=== PATIENT | male | born 1970 | race Caucasian/White ===

== ENCOUNTER 2021-10-09 16:57 | Observation (INO) ==
[2021-10-09 19:19] LABS: Hemoglobin 14.7 g/dL (12.9-16.9); Immature Granulocytes % 0.4 % (0-4); Lymphocytes % 20.2 %; Mean Corpuscular HGB Conc 34.2 g/dL (31.6-35.5); Mean Corpuscular Hemoglobin 30.4 pg (28.0-33.3); Mean Corpuscular Volume 88.8 fL (83.0-100.0); Mean Platelet Volume 8.6 fL (9.4-12.4); Monocytes % 6.1 %; Platelet Count 196 K/mcL (140-400); Red Blood Count 4.84 M/mcL (4.19-5.50); Segmented Neutrophils % 71.1 %; White Blood Count 13.4 K/mcL (4.3-11.1)
[2021-10-09 19:20] LABS: Basophils # 0.1 K/mcL (0.0-0.2); Basophils % 0.6 %; Eosinophils # 0.2 K/mcL (0.0-0.6); Eosinophils % 1.6 %; Lymphocytes # 2.7 K/mcL (0.6-4.6); Monocytes # 0.8 K/mcL (0.0-1.3); Neutrophils # 9.5 K/mcL (1.6-8.9)
[2021-10-09] MEDS ORDERED: *HR* FentaNYL (PF) 100 MCG/2 ML VIAL IVP ONE (19:24)
[2021-10-09] MEDS ORDERED: 0.9 % Sodium Chloride 1,000 ML IV ONE (19:24)
[2021-10-09 19:39] LABS: Potassium 3.9 mEq/L (3.5-5.1)
[2021-10-09 19:49] LABS: Albumin 4.4 g/dL (3.5-5.7); Albumin/Globulin Ratio 1.3 (1.1-2.2); Bilirubin,Direct 0.2 mg/dL (0.0-0.2); Bilirubin,Indirect 0.9 mg/dL (0.0-1.0); Bilirubin,Total 1.1 mg/dL (0.3-1.0); Globulin 3.3 g/dL (2.4-3.5); Total Protein 7.7 g/dL (6.4-8.9)
[2021-10-09 20:40] LABS: Bilirubin,Urine Negative (Negative); Blood,Urine Negative (Negative); Clarity,Urine Clear (Clear); Color,Urine Yellow (Yellow); Glucose,Urine (UA) Normal (Normal); Ketones,Urine Negative (Negative); Leukocyte Esterase,Urine Negative (Negative); Nitrite,Urine Negative (Negative); Protein,Urine Trace mg/dL (Neg-Trace); Specific Gravity,Urine 1.022 (1.010-1.025); Urobilinogen,Urine Normal (Normal)
[2021-10-09] MEDS ORDERED: *HR* HYDROmorphone 2 MG TABLET PO ONE (22:27)
[2021-10-09] MEDS ORDERED: *HR* HYDROmorphone (PF) 1 MG/ML SYRINGE IVP ONE (23:31)
[2021-10-10] MEDS ORDERED: *HR* HYDROcodone/Acet 5/325 mg TABLET PO PRN ×2 (00:32→09:54)
[2021-10-10] MEDS ORDERED: Melatonin 3 MG TABLET PO PRN ×2 (00:32→09:54)
[2021-10-10] MEDS ORDERED: Ondansetron 4 MG/2 ML VIAL IVP PRN (00:32)
[2021-10-10] MEDS ORDERED: Naloxone 0.4 MG/ML INJ IVP PRN ×2 (00:32→09:54)
[2021-10-10] MEDS ORDERED: Acetaminophen 325 MG TABLET PO PRN ×2 (00:32→09:54)
[2021-10-10] MEDS ORDERED: polyethylene glycoL 3350 17 GM POWD.PACK PO PRN (00:34)
[2021-10-10 03:07] LABS: Hematocrit 39.1 % (37.5-50.1); Mean Corpuscular Hemoglobin 29.7 pg (28.0-33.3); Mean Corpuscular Volume 90.1 fL (83.0-100.0); Mean Platelet Volume 8.6 fL (9.4-12.4); Platelet Count 167 K/mcL (140-400); Red Blood Count 4.34 M/mcL (4.19-5.50); Red Cell Distribution Width 11.9 % (11.5-14.5); White Blood Count 10.7 K/mcL (4.3-11.1)
[2021-10-10 03:13] LABS: Calcium 8.5 mg/dL (8.6-10.3); Chol/HDL Ratio 3.4 (0-4.9); Magnesium 2.1 mg/dL (1.6-2.6); Potassium 3.8 mEq/L (3.5-5.1)
[2021-10-10 03:14] LABS: Hemoglobin 12.9 g/dL (12.9-16.9)
[2021-10-10] MEDS ORDERED: Iopamidol - 300 50 ML VIAL ONE (06:58)
[2021-10-10] MEDS ORDERED: *HR* Propofol 200 MG/20 ML VIAL IVP ONE (07:14)
[2021-10-10] MEDS ORDERED: *HR* Succinylcholine 200 MG/10 ML VIAL IVP ONE (07:14)
[2021-10-10] MEDS ORDERED: *HR* FentaNYL (PF) 100 MCG/2 ML VIAL ONE (07:14)
[2021-10-10] MEDS ORDERED: Lidocaine HCL 4 ML Topical Solution (Laryng-O-Jet Kit Sterile Pak) TP ONE (07:14)
[2021-10-10] MEDS ORDERED: Ondansetron 4 MG/2 ML VIAL ONE (07:14)
[2021-10-10] MEDS ORDERED: *HR* Midazolam HCl 2 MG/2 ML VIAL ONE (07:14)
[2021-10-10] MEDS ORDERED: *HR* Rocuronium Bromide 50 MG/5 ML VIAL ONE (07:14)
[2021-10-10] MEDS ORDERED: Lidocaine -MPF 2% 5 ML VIAL ONE (07:14)
[2021-10-10] MEDS ORDERED: ceFAZolin 2,000 MG in Water for inj. (sterile) 20 ML IVP ONE (07:42)
[2021-10-10] MEDS ORDERED: CeFAZolin Syr 2,000MG/20 ML 2,000 MG/20 ML SYRINGE IVPB ONE (07:45)
[2021-10-10] MEDS ORDERED: *HR* HYDROmorphone PF 0.5 MG/0.5 ML SYRINGE IVP PRN (07:52)
[2021-10-10] MEDS ORDERED: Sugammadex Sodium 200 MG/2 ML VIAL IV ONE (08:25)
[2021-10-10 15:57] VITALS: BP 104/69; PULSE 78; TEMP 98.5; O2SAT 95
== END 2021-10-10 18:10 | disposition home or self-care (01) ==
LOC: EMEROOARM 16:57 → 3ANU 16:57 → SUATTDRO 21:18 → 3ANU 21:56
PROVIDERS: ADMIT Student in an Organized Health Care Education/Training Program; ATTEND Student in an Organized Health Care Education/Training Program